=== PATIENT | female | born 1955 | race Hispanic/Latino ===

== ENCOUNTER 2020-08-06 09:59 | Outpatient (RCR) | payer MEDICARE, OTHER | END 2020-08-07 | disposition still patient (30) | LOC: PT 09:59 | PROVIDERS: ATTEND Neurological Surgery | DX: M43.17 Spondylolisthesis, lumbosacral region (principal); M62.81 Muscle weakness (generalized); M54.5 Low back pain; M53.86 Other specified dorsopathies, lumbar region ==

== ENCOUNTER → 2022-03-08 | Outpatient (CLI) | payer MEDICARE, OTHER | LOC: SLEEP 22:12 | DX: G47.8 Other sleep disorders (principal); F51.9 Sleep disorder not due to a substance or known physiological condition, unspecified; R06.83 Snoring | CPT/HCPCS: 95810 ==